=== PATIENT | female | born 1955 | race Caucasian/White ===

== ENCOUNTER 2018-07-06 13:29 | Emergency (ER) | payer OTHER ==
--- OUTSIDE RECORDS SUMMARY | 2018-07-06 13:34 | XMS REPORT | Continuity of Care Document ---
:1955 External Reference #:[id number] Author Name Covert, Marina Care Team Providers Name Role Phone Dennis Perez MD Primary Care Physician Unavailable Payers Type Date Identification Numbers Payment Provider Subscriber Policy Number: [id number] [facility] Health Ins Ppo/Epo Katelynn Garcia PayID: [id number] [address] [place] [address] Advance Directives Description No Information Available Problems Description No Information Family History Date Family Member(s) Problem(s) Comments : (age 87 Father due to cardiac Years) issues, not specific cause of Father Diabetes Type II Onset: (03/04/2018) Mother Hypertension (age 88 Years) Mother Diabetes Onset: (03/04/2018) Siblings 3 Siblings 3 1 - brother dec at age - 39 from PE 1 sister with diabetes 1 sister also with diabetes, no insulin. 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 ETOH Use Denies alcohol use Recreational Drug Use Denies Drug Use Tobacco Use Start: Unknown End: Patient is a former quit smoking 3 Unknown smoker weeks ago. May 2018 Smoking Status Reviewed: 06/25/18 Patient is a former quit smoking 3 smoker weeks ago. May 2018 Exercise Type/Frequency Exercises regularly gym 2-3 days per week, [employer], 30 minute circuit. Allergies, Adverse Reactions, Alerts Date Description Reaction Status Severity Comments 03/04/2018 Lisinopril Active cough 03/04/2018 Seasonal And Enviromental Active Medications Medication Date Status Form Strength Qnty SIG Indications Ordering Provider Dexamethasone 11/21/ Active Tablets 1mg 1tabs give at E27.8 Apollo 2017 bedtime on MD Sera the evening prior to in the morning lab draw Citalopram / Active Tablets 20mg 1 by mouth Unknown Hydrobromide 0000 every day Lantus / Active Solution 100Unit/ML 50 units Unknown 0000 in the morning and 50 units in the evening Lovastatin / Active Tablets 20mg take 1 Unknown 0000 tablet at bedtime Metformin HCL / Active Tablets 500mg 2 tabs by Unknown 0000 mouth twice a day Triamterene/Hyd / Active Tablets 75-50mg 1 by mouth Unknown rochlorothiazid 0000 every day e Levetiracetam 05/21/ Hx Tablets 500mg 60tabs 1 po bid Kal Singh 2010 - Lynne, M.DVidya 2017 Cephalexin 03/29/ Hx Tablets 500mg 40tabs one po qid Kal Singh 2010 - x 10 days Lynne, M.DVidya 2017 Dexamethasone 03/01/ Hx Tablets 4mg 30tabs 1 po tid Kal Singh 2010 - starting Lynne, on M.DVidya 2017March 04, 2011 Prilosec 03/01/ Hx Capsules 20mg 30caps 1 po qam Kal Singh 2010 - DR Batista, M.DVidya 2017 Immunizations Description No Information Available Vital Signs Date Vital Result Comment 06/25/2018 7:34am Height 64 inches 5'4" Weight 245.00 lb w/ shoes Heart Rate 83 /min BP Systolic Sitting 143 mmHg BP Diastolic Sitting 84 mmHg BMI (Body Mass Index) 42.0 kg/m2 03/04/2018 9:44am Height 64 inches 5'4" Weight 239.50 lb with shoes Heart Rate 92 /min BP Systolic Sitting 130 mmHg Lue Large cuff BP Diastolic Sitting 82 mmHg Lue Large cuff BMI (Body Mass Index) 41.1 kg/m2 Results Test Date Facility Test Result H/L Range Note Laboratory test finding 06/25/2018 [facility] Glucose Random 148 Hemoglobin A1c 7.0 5-7 Order 03/04/2018 [facility] EKG <pending> CBC No Diff 04/17/2011 [facility] White Blood Count 5.7 CUMM 4.8-10.[address] [place] [address] [phone] Red Cell Count 4.09 CUMM Low 4.2-5.4 Hemoglobin 12.5 g/dL 12.0-16.0 Hematocrit 36 % 35-47 Mean Corpuscular Volume 88 um3 79-97 Mean Corpuscular Hemoglob 31 pg 27-31 Mean Corpuscular HGB Cone 35 g/dL 32-36 Redcell Distribution WDTH 13 % 10.5-15 Platelet Count 202 CUMM 150-450 Mean Platelet Volume 8.9 um3 7.4-10.4 Laboratory test 04/17/2011 [facility] Hemoglobin A1c 7.7 % High Less Than [address] [place] [address] [phone] Liver Function 04/17/2011 [facility] Total Protein 6.1 Low 6.2 -8.1 Panel 101 GM/[place] [address] [phone] Albumin 3.7 GM/DL 3.6-5.4 Globulin 2.4 GM/DL 2-4 Albumin/Globulin Ratio 1.5 1-3 Bilirubin Total 0.5 mg/dL 0.4-1.5 2 Bilirubin Direct 0.0 mg/dL Low 0.1-0.5 Indirect Bilirubin (SEE NOTE) mg/dL 0.3-1.0 3 Alkaline Phosphatase 65 U/L 30-110 Alt (SGPT) 24 U/L 14-54 Ast (Sgot) 23 U/L 12-42 Lipid Profile 04/17/2011 [facility] Triglyceride 389 mg/dL High 40-200 (Trig/Chol/HDL) [address] [place] [address] [phone] Cholesterol 204 mg/dL High Less Than 200 4 High Density Lipoprotein 43 mg/dL 40-60 5 Cholesterol/HDL Ratio 4.74 AVERAGE High 1-4.44 Low Density Lipoprotein 83 mg/dL Less Than 100 6 Basic Metabolic Panel 04/17/2011 [facility] Sodium 142 mmol/L 135-[address] [place] [address] [phone] Potassium 4.7 mmol/L 3.5-5.0 Chloride 109 mmol/L 101-111 Co2 (Carbon Dioxide) 28.0 mmol/L 22-32 Anion Gap 5.0 mmol/L 2-11 7 Glucose 153 mg/dL High 70-100 BUN 12 mg/dL 6-24 Creatinine 0.8 mg/dL 0.50-1.40 One Over Creatinine 1.25 BUN/Creatinine Ratio 15.0 8-20 Calcium 9.3 mg/dL 8.1-9.9 eGFR Non- 75.0 > 60 eGFR 96.5 > 60 8 Type And Screen 03/01/2011 [facility] Patient Blood O POSITIVE 9 (Pre-Adm) [address] [place] [address] [phone] Antibody Screen NEGATIVE Specimen Discard Date 03/15/11 10 Basic Metabolic Panel 03/01/2011 [facility] Sodium 136 mmol/L 135-145 [address] [place] [address] [phone] Potassium 4.1 mmol/L 3.5-5.0 Chloride 101 mmol/L 101-111 Co2 (Carbon Dioxide) 28.0 mmol/L 22-32 Anion Gap 7.0 mmol/L 2-11 11 Glucose 146 mg/dL High 70-100 BUN 14 mg/dL 6-24 Creatinine 0.70 mg/dL 0.50-1.40 One Over Creatinine 1.40 BUN/Creatinine Ratio 20.0 8-20 Calcium 9.7 mg/dL 8.1-9.9 eGFR Non- 87.5 > 60 eGFR 112.6 > 60 12 CBC No Diff 03/01/2011 [facility] White Blood Count 9.0 CUMM 4.8-10.8 [address] [place] [address] [phone] Red Cell Count 4.58 CUMM 4.2-5.4 Hemoglobin 14.5 g/dL 12.0-16.0 Hematocrit 41 % 35-47 Mean Corpuscular Volume 89 um3 79-97 Mean Corpuscular Hemoglob 32 pg High 27-31 Mean Corpuscular HGB Cone 36 g/dL 32-36 Redcell Distribution WDTH 14 % 10.5-15 Platelet Count 201 CUMM 150-450 Mean Platelet Volume 8.9 um3 7.4-10.4 1 THERAPEUTIC TARGET FOR THE TREATMENT OF DIABETES MELLITUS PATIENTS IS <7% HBA1C, AND IN SELECTIVE PATIENTS <6.0%. PLEASE REFER TO [place] [employer] DIABETIC CARE GUIDELINES FOR FURTHER INFORMATION. 2 A metabolite of Naproxen, O-desmethylnaproxen, has been shown to interfere with the Jendrassik-Tez method for measuring total bilirubin. Samples from patients who have taken Naproxen have shown spurious elevation in total bilirubin levels. 3 UNABLE TO CALCULATE IND.BILI D.BILI IS <0.1 Please note updated reference range, effective 02/23/10 4 CHOLESTEROL INTERPRETATION: Desirable: Less than 200 MG/DL Borderline-High Risk: 200-239 MG/DL High-Risk: 240 MG/DL and over 5 HDL INTERPRETATION: Undesirable: High Risk: Less than 40 MG/DL Desirable: Low Risk: Greater than 60 MG/DL 6 LDL INTERPRETATION: Low Risk Optimal Level: LDL Less than 100 MG/DL Near or Above Optimal: LDL 100-129 MG/DL Borderline High Risk: LDL 130-159 MG/DL High Risk: LDL 160-189 MG/DL Very High Risk: LDL Greater than 189 MG/DL 7 Anion gap measurement may be of limited value in the presence of any alkalosis, especially in a combined acid base disorder. . 8 Because ethnic data is not always readily available, this report includes an eGFR for both -Americans and non- Americans. The National Kidney Disease Education Program (NKDEP) does not endorse the use of the MDRD equation for patients that are not between the ages of 18 and 70, are , have extremes of body size, muscle mass, or nutritional status, or are non- or non-. According to the National Kidney Foundation, irrespective of diagnosis, the stage of the disease is based on the level of kidney function: Stage Description GFR(mL/min/1.73 m(2)) 1 Kidney damage with normal or decreased GFR 90 2 Kidney damage with mild decrease in GFR 60-89 3 Moderate decrease in GFR 30-59 4 Severe decrease in GFR 15-29 5 Kidney failure <15 (or dialysis) 9 AA 03/06 10 PREADMISSION TESTING SAMPLES FOR BLOOD BANK WILL BE HELD FOR 14 DAYS FROM THE DATE OF COLLECTION *IF* THE FOLLOWING CRITERIA ARE MET: 1) THE PATIENT HAS *NOT* BEEN IN THE LAST 3 MONTHS. 2) THE PATIENT HAS *NOT* BEEN TRANSFUSED IN THE LAST 3 MONTHS. PREADMISSION TESTING SAMPLES WILL *NOT* BE HELD FOR 14 DAYS FROM PATIENTS WHO IN THE LAST 3 MONTHS: 1) HAVE BEEN 2) HAVE BEEN TRANSFUSED THESE PATIENTS *MUST* BE COLLECTED WITHIN 3 DAYS OF THE SURGERY DATE. 11 Anion gap measurement may be of limited value in the presence of any alkalosis, especially in a combined acid base disorder. . 12 Because ethnic data is not always readily available, this report includes an eGFR for both -Americans and non- Americans. The National Kidney Disease Education Program (NKDEP) does not endorse the use of the MDRD equation for patients that are not between the ages of 18 and 70, are , have extremes of body size, muscle mass, or nutritional status, or are non- or non-. According to the National Kidney Foundation, irrespective of diagnosis, the stage of the disease is based on the level of kidney function: Stage Description GFR(mL/min/1.73 m(2)) 1 Kidney damage with normal or decreased GFR 90 2 Kidney damage with mild decrease in GFR 60-89 3 Moderate decrease in GFR 30-59 4 Severe decrease in GFR 15-29 5 Kidney failure <15 (or dialysis) Procedures Date Code Description Status 04/18/2018 18422 Treadmill Interp/Report Only Completed 04/18/2018 71980 Stress Test Supervsn W/Out I/R Completed 03/14/2018 06631 ECHO Transthoracic, Real-Time 2D With Doppler And Color Completed Flow 03/14/2018 00192 ECHO Transthoracic, Real-Time 2D With Doppler And Color Completed Flow 03/04/2018 26155 EKG Tracing & Interpretation Completed 03/06/2011 93198 Stereotactic CAD Proc Cranial,Intradural Add On Code Completed 03/06/2011 90776 Craniectomy, Trephination,Bone Flap For Exc Meningioma, Completed Supratent 10/27/2007 93936 EKG, Interpretation Only Completed Encounters Type Date Location Provider Dx Diagnosis Office Visit 06/25/2018 Anthony Flood and Apollo Zamoar MD E27.8 Other specified 8:00a [facility] disorders of adrenal gland E11.9 Type 2 diabetes mellitus without complications E87.6 Hypokalemia Z68.41 Body mass index (BMI) 40.0-44.9, adult Office Visit 03/04/2018 9:40a [facility]io Burleson E13.9 Other specified Cardiology Raya Baxter diabetes mellitus without complications J43.9 Emphysema, unspecified E78.00 Pure hypercholesterolemia, unspecified I10 Essential (primary) hypertension R94.31 Abnormal electrocardiogram [ECG] [EKG] R06.00 Dyspnea, unspecified Office Visit 06/23/2014 2:59p [facility] Holden 599.0 [facility]juancho Cramer M.D. T[facility] Infection Hospital[facility] Site Not Spec 038.9 Septicemia Unspec 250.00 Diabetes Mellitus W/O Compl Type II Or Unspec Controlled 790.29 Other Abnormal Glucose Office Visit 06/22/2014 2:58p [facility] Jovana 599.0 [facility],juancho Arauz M.D. Tract Infection Hospitalists Site Not Spec 038.9 Septicemia Unspec 250.00 Diabetes Mellitus W/O Compl Type II Or Unspec Controlled Office Visit 06/21/2014 2:58p [facility] Mya S. 599.0 [facility],juancho Wilcox N.P. Tract Infection Hospitalists Site Not Spec 038.9 Septicemia Unspec 790.29 Other Abnormal Glucose Office Visit 02/16/2011 3:00p Neurosurgery Kal Singh 225.2 [facility] Raya Batista Cerebral Meninges Plan of Treatment Future Appointment(s):07/23/2018 8:40 am - Apollo Zamora MD at [facility]06/25/2018 - Apollo Zamora MDE27.8 Other specified disorders of adrenal glandNew Medication:Dexamethasone 1 mg - give at bedtime on the evening prior to in the morning lab drawFollow up:4 weeksInstructions:1. Blood tests today. 2. Collect saliva samples on 3 consecutive nights. 3. Take dexamethasone 1mg tablet on the 3rd night prior to blood tests. 4. Return in 3- 4 weeks for a follow-up visit.E11.9 Type 2 diabetes mellitus without complicationsInstructions:1. Reduce Lantus to 40 units twice daily.E87.6 YqgigqtrziiZ33.41 Body mass index (BMI) 40.0-44.9, adult
[2018-07-06 13:57] VITALS: BP 139/87
--- NOTE | 2018-07-06 14:20 | UC ---
Complaint Female HPI - HPI Summary HPI Summary: 62 y/o female presents to the urgent care c/o frequency and burning on urination w/ hematuria since this morning. However she has similar symptoms about 1 months ago which resolved w/ drinking a lot of water. She was recently Dx w/ enlarged adrenal gland and a Meningoma about 2 months ago and has been managed by DR Jerome. Pt states mild lower back pain, 4/10 specially w/ urination. Pt denies fever, flank pain, pelvic pain, vaginal pain, abdominal pain, N/V/D. She has not taking any medications to alleviate symptoms. - History Of Current Complaint Chief Complaint: UCGU Stated Complaint: BLOOD IN URINE Time Seen by Provider: 07/06/18 14:18 Hx Obtained From: Patient Onset/Duration: Gradual Onset, Lasting Hours - 10 hrs, Still Present Timing: Intermittent, Lasting Seconds Severity Initially: Mild Severity Currently: Mild Pain Intensity: 4 Pain Scale Used: 0-10 Numeric Character: Burning Aggravating Factor(s): Urination Alleviating Factor(s): Nothing Associated Signs And Symptoms: Positive: Back Pain - lower back pain. Negative : Fever, Vaginal Bleeding/Discharge, Vaginal Discharge, Nausea, Vomiting(# Of Episodes =), Genital Swelling, Genital Blisters - Risk Factors Ectopic Risk Factor: Negative Ovarian Torsion Risk Factor: Negative - Allergies/Home Medications Allergies/Adverse Reactions: Allergies Allergy/AdvReac Type Severity Reaction Status Date / Time lisinopril Allergy Coughing Verified 07/06/18 13:57 PMH/Surg Hx/FS Hx/Imm Hx Previously Healthy: Yes Endocrine History: Diabetes Cardiovascular History: Hypertension Other Neurological History: Meningioma Psychological History: Anxiety - Surgical History Surgical History: Yes Surgery Procedure, Year, and Place: benign brain tumor removal,nose surgery, mass removed sinus cavity 1983,lt knee surgery 1984,rt foot bunionectomy,c- section,hysterectomy,tonsilectomy,ganglion removed from rt ring finger - Family History Known Family History: Positive: Cardiac Disease, Hypertension, Diabetes Family History: stroke - Social History Alcohol Use: None Substance Use Type: None Smoking Status (MU): Light Every Day Tobacco Smoker Type: Cigarettes Length of Time of Smoking/Using Tobacco: 30 years Have You Smoked in the Last Year: Yes When Did the Patient Quit Smoking/Using Tobacco: 3 days ago Household Exposure Type: Cigarettes - Immunization History Most Recent Influenza Vaccination: never Most Recent Tetanus Shot: within 10 years Most Recent Pneumonia Vaccination: 2008 Review of Systems All Other Systems Reviewed And Are Negative: Yes Constitutional: Positive: Negative Skin: Positive: Negative Eyes: Positive: Negative ENT: Positive: Negative Respiratory: Positive: Negative Cardiovascular: Positive: Negative Gastrointestinal: Positive: Negative Genitourinary: Positive: Dysuria, Hematuria, Frequency, Urgency, Other - lower back pain Motor: Positive: Negative Neurovascular: Positive: Negative Musculoskeletal: Positive: Negative Neurological: Positive: Negative Psychological: Positive: Negative Is Patient Immunocompromised?: No Physical Exam - Summary Physical Exam Summary: VITAL SIGNS: Reviewed. GENERAL: Patient is a well developed and nourished obese female who is sitting comfortable in the examining table. Patient is not in any acute respiratory distress. HEAD AND FACE: No signs of trauma. No ecchymosis, hematomas or skull depressions. No sinus tenderness. EYES: PERRLA, EOMI x 2, No injected conjunctiva, clear watery eyes, no nystagmus. No photophobia. EARS: Hearing grossly intact. Ear canals and tympanic membranes are within normal limits. MOUTH: pharynx with no erythema, no exudates,no palatal petechiae. no B/L tonsillar enlargement Uvula in midline. NECK: Supple, trachea is midline, no lymphadenopathy, no JVD, no carotid bruit, no c-spine tenderness, neck with full ROM. CHEST: Symmetric, no tenderness at palpation LUNGS: Clear to auscultation bilaterally. No wheezing or crackles. CVS: Regular rate and rhythm, S1 and S2 present, no murmurs or gallops appreciated. ABDOMEN: Soft, non-tender. No signs of distention. No rebound no guarding, and no masses palpated. Bowel sounds are normal. BACK:no scoliosis or lesions, non tender to palpation, No B/L CVA tenderness EXTREMITIES: FROM in all major joints, no edema, no cyanosis or clubbing. NEURO: Alert and oriented x 3. No acute neurological deficits. Speech is normal and follows commands. SKIN: Dry and warm Triage Information Reviewed: Yes Vital Signs: Initial Vital Signs Temp 97.8 F 07/06/18 13:52 Pulse 109 07/06/18 13:52 Resp 18 07/06/18 13:52 BP 139/87 07/06/18 13:52 Pulse Ox 99 12/02/18 13:52 Complaint Female Dx - Course Course Of Treatment: 62 y/o female presents to the urgent care c/o frequency and burning on urination w/ hematuria since this morning. However she has similar symptoms about 1 months ago which resolved w/ drinking a lot of water. She was recently Dx w/ enlarged adrenal gland and a Meningoma about 2 months ago and has been managed by DR Jerome. Pt states mild lower back pain, 4/10 specially w/ urination. Pt denies fever, flank pain, pelvic pain, vaginal pain, abdominal pain, N/V/D. She has not taking any medications to alleviate symptoms. Hx obtained. PE:WNL. UA results: Blood 3+, Leukoesterase 1+. Pt Rx Bactrim PO x 7 days. Pyridium 100mg PO TID x 2 days. Advised to increase fluid intake. Urine sent for culture if any abnormality Pt will be notified for further treatment. Pt advised If she develops fever or flank pain to immediately go to the ER for further management, otherwise f/u w/ DR Jerome for further management is not improvment. D/C instrcutions explained. Pt understood and agreed. Left the clinic ambulating. - Differential Dx/Diagnosis Differential Diagnosis/HQI/PQRI: Appendicitis, Ovarian Cyst, Renal Colic, Ureteral Stone, Urinary Tract Infection, Other - pyelonephritis Provider Diagnosis: UTI (urinary tract infection), Dysuria Discharge - Sign-Out/Discharge Documenting (check all that apply): Patient Departure - D/C home All imaging exams completed and their final reports reviewed: No Studies - Discharge Plan Condition: Stable Disposition: HOME Prescriptions: Phenazopyridine TAB* [Pyridium 100 mg TAB*] 100 mg PO TID #6 tab Sulfamethox/Trimethoprim DS* [Bactrim DS 800/160 TAB*] 1 tab PO BID #14 tab Patient Education Materials: Urinary Tract Infection in Women (ED) Referrals: Dennis Perez MD [Primary Care Provider] - 3 Days Additional Instructions: 1- Please take Bactrim PO x 7 days. Pyridium 100 mg PO TID x 2 days to alleviate urinary symptoms. Increase increase fluid intake. drink cranberry juice. 2-Urine sent for culture if any abnormality, you will be notified for further treatment. 3-If symptoms do not improve please f/u with your PCP in 3 days for further management. 4-If you develop fever or flank pain please go immediately to the ER for further management - Billing Disposition and Condition Condition: STABLE Disposition: Home
== END 2018-07-06 14:46 | disposition home or self-care (01) ==
LOC: UCEAST 13:29
DX: N39.0 Urinary tract infection, site not specified (principal); R31.9 Hematuria, unspecified; R30.0 Dysuria; I10 Essential (primary) hypertension; E11.9 Type 2 diabetes mellitus without complications; F17.210 Nicotine dependence, cigarettes, uncomplicated
CPT/HCPCS: 81003; 87086; 99212; G0463

== ENCOUNTER 2018-09-04 09:21 | Emergency (ER) | payer OTHER ==
[2018-09-04 09:33] VITALS: BP 138/70
--- NOTE | 2018-09-04 09:43 | UC ---
Hand/Wrist HPI - HPI Summary HPI Summary: Patient is a 63-year-old right-handed female that presents here status post a jamming injury to her right middle finger. Occurred last night. It is swollen and bruised. Pain is in the PIP joint - History Of Current Complaint Chief Complaint: UCUpperExtremity Stated Complaint: FINGER INJURY Time Seen by Provider: 09/04/18 09:37 Hx Obtained From: Patient Onset/Duration: Sudden Onset, Lasting Hours Severity Initially: Moderate Severity Currently: Mild Pain Intensity: 3 Pain Scale Used: 0-10 Numeric Character Of Pain: Aching, Throbbing Aggravating Factor(s): Movement Alleviating Factor(s): Rest Associated Signs And Symptoms: Positive: Swelling, Bruising Related History: Dominant Hand Right Hands: 1 - swoolen/ecchymotic - Allergies/Home Medications Allergies/Adverse Reactions: Allergies Allergy/AdvReac Type Severity Reaction Status Date / Time lisinopril Allergy Coughing Verified 09/04/18 09:33 PMH/Surg Hx/FS Hx/Imm Hx Previously Healthy: Yes Endocrine History: Diabetes Cardiovascular History: Hypertension - Surgical History Surgical History: Yes Surgery Procedure, Year, and Place: benign brain tumor removal,nose surgery, mass removed sinus cavity 1983,lt knee surgery 1984,rt foot bunionectomy,c- section,hysterectomy,tonsilectomy,ganglion removed from rt ring finger - Family History Known Family History: Positive: Cardiac Disease, Hypertension, Diabetes Family History: stroke - Social History Alcohol Use: None Substance Use Type: None Smoking Status (MU): Light Every Day Tobacco Smoker Type: Cigarettes Length of Time of Smoking/Using Tobacco: 30 years Have You Smoked in the Last Year: Yes When Did the Patient Quit Smoking/Using Tobacco: 3 days ago Household Exposure Type: Cigarettes - Immunization History Most Recent Influenza Vaccination: never Most Recent Tetanus Shot: within 10 years Most Recent Pneumonia Vaccination: 2008 Review of Systems All Other Systems Reviewed And Are Negative: Yes Constitutional: Positive: Negative Skin: Positive: Bruising Eyes: Positive: Negative ENT: Positive: Negative Respiratory: Positive: Negative Cardiovascular: Positive: Negative Gastrointestinal: Positive: Negative Genitourinary: Positive: Negative Motor: Positive: Negative Neurovascular: Positive: Negative Musculoskeletal: Positive: Arthralgia - RMF PIP Neurological: Positive: Negative Psychological: Positive: Negative Physical Exam Triage Information Reviewed: Yes Appearance: Well-Appearing, No Pain Distress, Well-Nourished Vital Signs: Initial Vital Signs Temp 97 F 09/04/18 09:28 Pulse 88 09/04/18 09:28 Resp 20 09/04/18 09:28 BP 138/70 09/04/18 09:28 Pulse Ox 96 09/04/18 09:28 Eyes: Positive: Conjunctiva Clear ENT: Positive: Hearing grossly normal. Negative: Nasal congestion, Nasal drainage, Tonsillar swelling, Tonsillar exudate, Muffled voice, Sinus tenderness Dental Exam: Normal Neck: Positive: Supple, Nontender, No Lymphadenopathy Respiratory: Positive: Lungs clear, Normal breath sounds, No respiratory distress Cardiovascular: Positive: RRR, No Murmur Musculoskeletal: Positive: ROM Intact, No Edema Neurological: Positive: Alert Psychological Exam: Normal Skin Exam: Normal Diagnostics - Radiology No standard instances Radiology Interpretation Completed By: Radiologist Summary of Radiographic Findings: DJD, STS, no fx Hand/Wrist Course/Dx - Differential Dx/Diagnosis Provider Diagnosis: Sprain of right middle finger Discharge - Sign-Out/Discharge Documenting (check all that apply): Patient Departure All imaging exams completed and their final reports reviewed: Yes - Discharge Plan Condition: Stable Disposition: HOME Patient Education Materials: Finger Sprain (ED) Referrals: Dennis Perez MD [Primary Care Provider] - 2 Weeks (if not better) Additional Instructions: maribell tape for comfort tylenol if needed for pain elevate ice - Billing Disposition and Condition Condition: STABLE Disposition: Home
== END 2018-09-04 10:22 | disposition home or self-care (01) ==
LOC: UCEAST 09:21
DX: S63.612A Unspecified sprain of right middle finger, initial encounter (principal); E11.9 Type 2 diabetes mellitus without complications; I10 Essential (primary) hypertension; F17.210 Nicotine dependence, cigarettes, uncomplicated; Z88.8 Allergy status to other drugs, medicaments and biological substances; X58.XXXA Exposure to other specified factors, initial encounter; Y92.9 Unspecified place or not applicable
CPT/HCPCS: 73140; 99212; G0463

== ENCOUNTER 2019-02-07 15:58 | Emergency (ER) | payer OTHER ==
--- OUTSIDE RECORDS SUMMARY | 2019-02-07 16:03 | XMS REPORT | Continuity of Care Document ---
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 ETOH Use Denies alcohol use Recreational Drug Use Denies Drug Use Tobacco Use Start: Unknown Light tobacco smoker (10 or fewer cigarettes/day) Smoking Status Reviewed: 01/21/19 Light tobacco smoker (10 or fewer cigarettes/day) Exercise Type/Frequency Exercises regularly gym 2-3 days per week, [employer], 30 minute circuit. Allergies, Adverse Reactions, Alerts Active Allergies Reaction Severity Comments Date Lisinopril cough 03/04/2018 Seasonal And Enviromental 03/04/2018 Medications Active Medications SIG Qnty Indications Ordering Date Provider Ozempic inject 0.25mg 1.500ml E11.65 Apollo Zamora, 01/21/2019 0.25or 0.5 mg/Dose weekly for 2 MD Solution Pen-Inject weeks, then increase to 0.5mg weekly Ozempic 1mg injection 3ml E11.65 Apollo Zamora, 01/21/2019 1mg/Dose Solution once weekly, Pen-Inject hold on file for second month Steglatro 1 by mouth 30tabs E11.9 Apollo Zamora, 10/21/2018 5mg Tablets every day MD Vladimir Rouse 80 units once 9ml E11.9 Apollo Zamora, 10/21/2018 300Unit/ML daily at Solution Pen-Inject bedtime Metformin HCL ER 1 tablet am and 180tabs Apollo Zamora, 10/21/2018 750mg Tablets ER 1 tablet pm 24HR Spironolactone take 50mg once 60tabs Apollo Zamora, 07/16/2018 50mg Tablets daily Hydrochlorothiazide take 25mg once 30tabs Apollo Zamora, 07/16/2018 25mg Tablets daily Citalopram Hydrobromide 1 by mouth Unknown 20mg every day Tablets Lovastatin take 1 tablet Unknown 20mg Tablets at bedtime History Medications Dexamethasone give at bedtime 1tabs E11.9 Apollo Zamora MD 07/23/2018 - 1mg Tablets on the evening 10/19/2018 prior to in the morning lab draw Dexamethasone give at bedtime 1tabs E27.8 Apollo Zamora MD 06/25/2018 - 1mg Tablets on the evening 07/16/2018 prior to in the morning lab draw Levetiracetam 1 po bid 60tabs Kal Singh 05/21/2011 - 500mg Raya Batista 02/13/2018 Tablets Cephalexin one po qid x 10 40tabs Kal Singh 03/29/2011 - 500mg Tablets days Raya Batista 02/13/2018 Dexamethasone 1 po tid starting 30tabs Kal Singh 03/01/2011 - 4mg Tablets on Saturday, February Raya Batista 02/13/20182010 Prilosec 1 po qam 30caps Kal Singh 03/01/2011 - 20mg Capsules DR Lynne M.D. 02/13/2018 Lantus 50 units in the E11.9 Unknown - 100Unit/ML morning and 50 10/21/2018 Solution units in the evening Metformin HCL 2 tabs by mouth Unknown - 500mg twice a day 10/21/2018 Tablets Triamterene/Hydrochlor 1 by mouth every Unknown - othiazide day 07/16/2018 75-50mg Tablets Vital Signs Date Vital Result Comment 01/21/2019 8:43am Height 64 inches 5'4" Weight 240.00 lb w/ shoes Heart Rate 104 /min BP Systolic Sitting 137 mmHg BP Diastolic Sitting 95 mmHg BMI (Body Mass Index) 41.2 kg/m2 10/21/2018 8:52am Height 64 inches 5'4" Weight 248.00 lb w/o shoes Heart Rate 110 /min BP Systolic Sitting 131 mmHg BP Diastolic Sitting 84 mmHg BMI (Body Mass Index) 42.6 kg/m2 07/24/2018 9:00am Height 64 inches 5'4" Weight 245.00 lb Heart Rate 72 /min BP Systolic 150 mmHg BP Diastolic 90 mmHg Respiratory Rate 18 /min Body Temperature 97.9 F BMI (Body Mass Index) 42.0 kg/m2 07/23/2018 8:21am Height 64 inches 5'4" Weight 245.00 lb w/o shoes Heart Rate 98 /min BP Systolic Sitting 138 mmHg BP Diastolic Sitting 87 mmHg BMI (Body Mass Index) 42.0 kg/m2 06/25/2018 7:34am Height 64 inches 5'4" Weight [...] Result H/L Range Note Laboratory test finding 10/21/2018 [facility] Glucose Random 222 Hemoglobin A1c 8.2 High 5-7 Cortisol Free 09/01/2018 [facility] Urine Free 41 mcg/24h 3.5 -45 24HR Urine [address] [place] [address] [phone] Urine Collection Duration 24 h Urine Total Volume 2300 mL 1 Creatinine 24HR 09/01/2018 [facility] Urine Collection [address] [place] [address] [phone] Urine Total Volume 2300 mL Urine Creatinine Concentration 82.73 mg/dL Urine Creatinine/24 Hour 1902.79 mg/24Hr High 600-1800 Laboratory test 09/01/2018 [facility] Cortisol 14.36 g/dL 2 finding [address] [place] [address] [phone] Basic Metabolic 08/01/2018 [facility] Sodium 139 mmol/L N 135- [address] [place] [address] [phone] Potassium 4.2 mmol/L N 3.5-5.0 Chloride 104 mmol/L N 101-111 Co2 Carbon Dioxide 28 mmol/L N 22-32 Anion Gap 7 mmol/L N 2-11 Glucose 128 mg/dL High 70-100 Blood Urea Nitrogen 22 mg/dL N 6-24 Creatinine 0.74 mg/dL N 0.51-0.95 BUN/Creatinine Ratio 29.7 High 8-20 Calcium 9.3 mg/dL N 8.6-10.3 Egfr Non- 80.1 >60 Egfr 96.9 >60 3 Basic Metabolic Panel 07/24/2018 [facility] Sodium 137 mmol/L N 135-145 [address] [place] [address] [phone] Potassium 4.5 mmol/L N 3.5-5.0 Chloride 103 mmol/L N 101-111 Co2 Carbon Dioxide 25 mmol/L N 22-32 Anion Gap 9 mmol/L N 2-11 Glucose 230 mg/dL High 70-100 Blood Urea Nitrogen 22 mg/dL N 6-24 Creatinine 0.77 mg/dL N 0.51-0.95 BUN/Creatinine Ratio 28.6 High 8-20 Calcium 9.4 mg/dL N 8.6-10.3 Egfr Non- 76.5 >60 Egfr 92.5 >60 4 Laboratory test finding 07/24/2018 [facility] Acth <5.0 pg/mL Abnormal 5 [address] [place] [address] [phone] Cortisol 2.37 g/dL 6 Laboratory test 07/23/2018 [facility] Glucose Random 152 finding Laboratory test 07/01/2018 [facility] Cortisol, Saliva <50 ng/ dL <100 7 finding [address] [place] [address] [phone] Cortisol 2.31 g/dL 8 Laboratory test finding 06/25/2018 [facility] Cortisol 8.22 g/ dL 9 [address] [place] [address] [phone] Progesterone 17Hydroxy <40 ng/dL 10 Dhea Sulfate 90 g/dL 16-195 11 Testosterone Total 21.72 ng/dL N 8-60 Aldosterone 24 ng/dL Abnormal <=21 12 Renin 1.4 ng/mL/h 13 Basic Metabolic Panel 06/25/2018 [facility] Sodium 139 mmol/L N 135-145 [address] [place] [address] [phone] Potassium 4.2 mmol/L N 3.5-5.0 Chloride 104 mmol/L N 101-111 Co2 Carbon Dioxide 27 mmol/L N 22-32 Anion Gap 8 mmol/L N 2-11 Glucose 115 mg/dL High 70-100 Blood Urea Nitrogen 19 mg/dL N 6-24 Creatinine 0.70 mg/dL N 0.51-0.95 BUN/Creatinine Ratio 27.1 High 8-20 Calcium 9.6 mg/dL N 8.6-10.3 Egfr Non- 85.4 >60 Egfr 103.3 >60 14 Laboratory test 06/25/2018 [facility] Acth 7.5 pg/mL 15 finding [address] [place] [address] [phone] Metanephrines 06/25/2018 [facility] Plasma Free 0.44 <0.9 Plasma [address] [facility] Normetanephrine nmol/L 0 [place] [address] [phone] Plasma Free Metanephrine <0.20 nmol/L <0.50 16 Laboratory test 06/25/2018 [facility] Sex Hormone 35 nmol/L 17 finding [address] [facility] [place] [address] [phone] Estradiol <40 pg/mL 18 Prolactin 5.2 ng/mL N 1.0-25.0 TSH (Thyroid Stim Horm) 3.32 mcIU/mL N 0.34-5.60 Estradiol, Confirmatory, S <10 pg/mL 19 Laboratory test finding 06/25/2018 [facility] Glucose Random 148 Hemoglobin A1c 7.0 5-7 Order 03/04/2018 [facility] EKG <pending> Laboratory test 04/17/2011 [facility] Hemoglobin A1c 7.7 % High Less Than [address] 6[address]0 [place] [address] [phone] Liver Function 04/17/2011 [facility] Total Protein 6.1 GM/DL Low 6.2-8.1 Panel [address] [place] [address] [phone] Albumin 3.7 GM/DL 3.6-5.4 Globulin 2.4 GM/DL 2-4 Albumin/Globulin Ratio 1.5 1-3 Bilirubin Total 0.5 mg/dL 0.4-1.5 21 Bilirubin Direct 0.0 mg/dL Low 0.1-0.5 Indirect Bilirubin (SEE NOTE) mg/dL 0.3-1.0 22 Alkaline Phosphatase 65 U/L 30-110 Alt (SGPT) 24 U/L 14-54 Ast (Sgot) 23 U/L 12-42 Lipid Profile 04/17/2011 [facility] Triglyceride 389 mg/dL High 40-200 (Trig/Chol/HDL) [address] [place] [address] [phone] Cholesterol 204 mg/dL High Less Than 200 23 High Density Lipoprotein 43 mg/dL 40-60 24 Cholesterol/HDL Ratio 4.74 AVERAGE High 1-4.44 Low Density Lipoprotein 83 mg/dL Less Than 100 25 Basic Metabolic Panel 04/17/2011 [facility] Sodium 142 mmol/L 135-145 [address] [place] [address] [phone] Potassium 4.7 mmol/L 3.5-5.0 Chloride 109 mmol/L 101-111 Co2 (Carbon Dioxide) 28.0 mmol/L 22-32 Anion Gap 5.0 mmol/L 2-11 26 Glucose 153 mg/dL High 70-100 BUN 12 mg/dL 6-24 Creatinine 0.8 mg/dL 0.50-1.40 One Over Creatinine 1.25 BUN/Creatinine Ratio 15.0 8-20 Calcium 9.3 mg/dL 8.1-9.9 eGFR Non- 75.0 > 60 eGFR 96.5 > 60 27 CBC No Diff 04/17/2011 [facility] White Blood Count 5.7 CUMM 4.8-10.8 [address] [place] [address] [phone] Red Cell Count 4.09 CUMM Low 4.2-5.4 Hemoglobin 12.5 g/dL 12.0-16.0 Hematocrit 36 % 35-47 Mean Corpuscular Volume 88 um3 79-97 Mean Corpuscular Hemoglob 31 pg 27-31 Mean Corpuscular HGB Cone 35 g/dL 32-36 Redcell Distribution WDTH 13 % 10.5-15 Platelet Count 202 CUMM 150-450 Mean Platelet Volume 8.9 um3 7.4-10.4 Type And Screen 03/01/2011 [facility] Patient Blood O POSITIVE 28 (Pre-Adm) [address] [facility] [place] [address] [phone] Antibody Screen NEGATIVE Specimen Discard Date 03/15/11 29 Basic Metabolic Panel 03/01/2011 [facility] Sodium 136 mmol/L 135-145 [address] [place] [address] [phone] Potassium 4.1 mmol/L 3.5-5.0 Chloride 101 mmol/L 101-111 Co2 (Carbon Dioxide) 28.0 mmol/L 22-32 Anion Gap 7.0 mmol/L 2-11 30 Glucose 146 mg/dL High 70-100 BUN 14 mg/dL 6-24 Creatinine 0.70 mg/dL 0.50-1.40 One Over Creatinine 1.40 BUN/Creatinine Ratio 20.0 8-20 Calcium 9.7 mg/dL 8.1-9.9 eGFR Non- 87.5 > 60 eGFR 112.6 > 60 31 CBC No Diff 03/01/2011 [facility] White Blood Count 9.0 CUMM 4.8-10.8 [address] [place] [address] [phone] Red Cell Count 4.58 CUMM 4.2-5.4 Hemoglobin 14.5 g/dL 12.0-16.0 Hematocrit 41 % 35-47 Mean Corpuscular Volume 89 um3 79-97 Mean Corpuscular Hemoglob 32 pg High 27-31 Mean Corpuscular HGB Cone 36 g/dL 32-36 Redcell Distribution WDTH 14 % 10.5-15 Platelet Count 201 CUMM 150-450 Mean Platelet Volume 8.9 um3 7.4-10.4 1 ADDITIONAL INFORMATION This test was developed and its performance characteristics determined by [facility] in a manner consistent with CLIA requirements. This test has not been cleared or approved by the U.S. Food and Drug Administration. Test Performed by: [facility] [address] [place] [address] 2 AM 8.7-22.4 PM <10 3 Because ethnic data is not always readily [...] 15-29 5 Kidney failure <15 (or dialysis) 4 Because ethnic data is not always readily [...] 15-29 5 Kidney failure <15 (or dialysis) 5 REFERENCE VALUE 7.2-63 (a.m. collection) Test Performed by: [facility] - [address] [address] 6 AM 8.7-22.4 PM <10 7 ADDITIONAL INFORMATION This test was developed and its performance characteristics determined by [facility] in a manner consistent with CLIA requirements. This test has not been cleared or approved by the U.S. Food and Drug Administration. Test Performed by: [facility] - [address] [address] 8 AM 8.7-22.4 PM <10 9 AM 8.7-22.4 PM <10 10 REFERENCE VALUE < 80 (Follicular) <285 (Luteal) < 51 (Postmenopausal) ADDITIONAL INFORMATION This test was developed and its performance characteristics determined by [facility] in a manner consistent with CLIA requirements. This test has not been cleared or approved by the U.S. Food and Drug Administration. Test Performed by: [facility] - [address] [address] 11 Test Performed by: [facility] - [address] [address] 12 ADDITIONAL INFORMATION Reference range for patients 11 years and older is based on upright A.M. collection from subjects without sodium restrictions. This test was developed and its performance characteristics determined by [facility] in a manner consistent with CLIA requirements. This test has not been cleared or approved by the U.S. Food and Drug Administration. Test Performed by: [facility] - [address] [address] 13 REFERENCE VALUE (Peripheral vein specimen) Na-deplete, upright: Mean: 5.9 Range: 2.9-10.8 Na-replete, upright: Mean: 1.0 Range: < or=0.6-3.0 ADDITIONAL INFORMATION Testing performed by Liquid Chromatography-Tandem Mass Spectrometry (LC-MS/MS). This test was developed and its performance characteristics determined by [facility] in a manner consistent with CLIA requirements. This test has not been cleared or approved by the U.S. Food and Drug Administration. Test Performed by: [facility] - [address] [address] 14 Because ethnic data is not always readily [...] 15-29 5 Kidney failure <15 (or dialysis) 15 REFERENCE VALUE 7.2-63 (a.m. collection) Test Performed by: [facility] - [address] [address] 16 ADDITIONAL INFORMATION This test was developed and its performance characteristics determined by [facility] in a manner consistent with CLIA requirements. This test has not been cleared or approved by the U.S. Food and Drug Administration. Test Performed by: [facility] [place] [address] 17 REFERENCE VALUE 18-144 (non-) Test Performed by: [facility] [place] [address] 18 Estradiols <40 pg/mL are sent to a reference lab for low range testing. Postmenopausal Females < 20 Ovulating females: by day in cycle relative to LH Peak Follicular phase - 12 10-50 - 4 60-200 Mid-cycle - 1 120-375 Luteal phase + 2 50-155 + 6 60-260 + 12 15-115 19 REFERENCE VALUE Premenopausal: 15-350 (E2 levels vary widely through the menstrual cycle.) Postmenopausal: <10 ADDITIONAL INFORMATION This test was developed and its performance characteristics determined by [facility] in a manner consistent with CLIA requirements. This test has not been cleared or approved by the U.S. Food and Drug Administration. Test Performed by: [facility] [place] [address] 20 THERAPEUTIC TARGET FOR THE TREATMENT OF DIABETES MELLITUS PATIENTS IS <7% HBA1C, AND IN SELECTIVE PATIENTS <6.0%. PLEASE REFER TO [employer] DIABETIC CARE GUIDELINES FOR FURTHER INFORMATION. 21 A metabolite of Naproxen, O-desmethylnaproxen, has been shown to interfere with the Jendrassik-Riegelwood method for measuring total bilirubin. Samples from patients who have taken Naproxen have shown spurious elevation in total bilirubin levels. 22 UNABLE TO CALCULATE IND.BILI D.BILI IS <0.1 Please note updated reference range, effective 02/23/10 23 CHOLESTEROL INTERPRETATION: Desirable: Less than 200 MG/DL Borderline-High Risk: 200-239 MG/DL High-Risk: 240 MG/DL and over 24 HDL INTERPRETATION: Undesirable: High Risk: Less than 40 MG/DL Desirable: Low Risk: Greater than 60 MG/DL 25 LDL INTERPRETATION: Low Risk Optimal Level: LDL Less than 100 MG/DL Near or Above Optimal: LDL 100-129 MG/DL Borderline High Risk: LDL 130-159 MG/DL High Risk: LDL 160-189 MG/DL Very High Risk: LDL Greater than 189 MG/DL 26 Anion gap measurement may be of limited value in the presence of any alkalosis, especially in a combined acid base disorder. . 27 Because ethnic data is not always readily [...] 15-29 5 Kidney failure <15 (or dialysis) 28 03/06 29 PREADMISSION TESTING SAMPLES FOR BLOOD BANK WILL [...] WITHIN 3 DAYS OF THE SURGERY DATE. 30 Anion gap measurement may be of limited value in the presence of any alkalosis, especially in a combined acid base disorder. . 31 Because ethnic data is not always readily [...] (or dialysis) Procedures Date Code Description Status 07/03/2018 766569992 Bone Mineral Density Test Completed 04/18/2018 11574 Treadmill Interp/Report Only Completed 04/18/2018 79515 Stress Test Supervsn W/Out I/R Completed 03/14/2018 46912 ECHO Transthoracic, Real-Time 2D With Doppler And Completed Color Flow 03/14/2018 22972 ECHO Transthoracic, Real-Time 2D With Doppler And Completed Color Flow 03/04/2018 83682 EKG Tracing & Interpretation Completed 03/06/2011 78382 Stereotactic CAD Proc Cranial,Intradural Add On Code Completed 03/06/2011 17288 Craniectomy, Trephination,Bone Flap For Exc Completed Meningioma, Supratent 10/27/2007 38305 EKG, Interpretation Only Completed Encounters Type Date Location Provider Dx Diagnosis Office Visit 10/21/2018 [facility] Apollo Zamora MD E11.65 Type 2 diabetes 9:00a [facility] mellitus with hyperglycemia 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 MD syndrome, unspecified Office Visit 07/23/2018 8:40a [facility] Apollo Zamora, E24.9 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 Tract Infection Hospitalists Site Not Spec 038.9 Septicemia Unspec 250.00 Diabetes Mellitus W/O Compl Type II Or Unspec Controlled 790.29 Other Abnormal Glucose Office Visit 06/22/2014 2:58p [facility] Jovana 599.0 UTI Urinary Assoc,juancho Arauz M.D. Tract Infection Hospitalists Site Not Spec 038.9 Septicemia Unspec 250.00 Diabetes Mellitus W/O Compl Type II Or Unspec Controlled Office Visit 06/21/2014 2:58p [facility] Mya SVidya 599.0 UTI Urinary Assoc,pc Brenden N.P. Tract Infection Hospitalists Site Not Spec 038.9 Septicemia Unspec 790.29 Other Abnormal Glucose Office Visit 02/16/2011 3:00p Neurosurgery Kal Coy.2 [facility] Raya Batista Cerebral Meninges Plan of Treatment Future Appointment(s):04/22/2019 8:40 am - Apollo Zamora MD at [facility]01/21/2019 - Apollo Zamora MDE11.65 Type 2 diabetes mellitus with hyperglycemiaNew Medication:Ozempic 0.25 or 0.5 mg/Dose - inject 0.25mg weekly for 2 weeks, then increase to 0.5mg weeklyOzempic 1 mg/Dose - 1mg injection once weekly, hold on file for second monthInstructions:1. Start Ozempic once weekly injection, as follows: - 0.25mg for 2 weeks - 0.5mg for 2 weeks - 1mg after that 2. Visit [email or web address] to obtain a savings card for Ozempic. 3. Continue metformin, Toujeo and Steglatro. 4. Blood and urine tests today. 5. We will consider losartan 50mg for blood pressure if urine protein level is high. 6. Return in 3 months for a follow-up visit.E24.8 Other Organ's [id number] Hypokalemia
[2019-02-07 16:07] VITALS: BP 149/70
[2019-02-07] MEDS ORDERED: Lidocaine 1% MPF ** 5 ML VIAL INJ ONE (16:25)
--- NOTE | 2019-02-07 17:06 | UC ---
Skin Complaint HPI - HPI Summary HPI Summary: 63-year-old female comes in with a chief complaint of an injury to her face. His prior to arrival at home she walked into a ceiling fan struck her on the bridge of the nose slightly left of center on the lower forehead. No change in vision no difficulty with speech no weakness no numbness. Of nausea vomiting. She does have a headache. She has a laceration that bled freely. She stopped bleeding with direct pressure. She is not on blood thinners. - History of Current Complaint Chief Complaint: UCLaceration Time Seen by Provider: 02/07/19 16:21 Stated Complaint: FACIAL LAC Pain Intensity: 5 - Allergy/Home Medications Allergies/Adverse Reactions: Allergies Allergy/AdvReac Type Severity Reaction Status Date / Time lisinopril Allergy Coughing Verified 02/07/19 16:03 PMH/Surg Hx/FS Hx/Imm Hx Previously Healthy: Yes Endocrine History: Diabetes, Dyslipidemia - Surgical History Surgical History: Yes Surgery Procedure, Year, and Place: benign brain tumor removal,nose surgery, mass removed sinus cavity 1983,lt knee surgery 1984,rt foot bunionectomy,c- section,hysterectomy,tonsilectomy,ganglion removed from rt ring finger - Family History Known Family History: Positive: Cardiac Disease, Hypertension, Diabetes Family History: stroke - Social History Alcohol Use: None Substance Use Type: None Smoking Status (MU): Light Every Day Tobacco Smoker Type: Cigarettes Length of Time of Smoking/Using Tobacco: 30 years Have You Smoked in the Last Year: Yes When Did the Patient Quit Smoking/Using Tobacco: 3 days ago Household Exposure Type: Cigarettes - Immunization History Most Recent Influenza Vaccination: never Most Recent Tetanus Shot: within 10 years Most Recent Pneumonia Vaccination: 2008 Review of Systems All Other Systems Reviewed And Are Negative: Yes Constitutional: Positive: Negative Skin: Positive: Other - SEE HPI Eyes: Positive: Negative ENT: Positive: Negative Respiratory: Positive: Negative Cardiovascular: Positive: Negative Gastrointestinal: Positive: Negative Motor: Positive: Negative Neurovascular: Positive: Negative Musculoskeletal: Positive: Negative Neurological: Positive: Headache Psychological: Positive: Negative Is Patient Immunocompromised?: No Physical Exam Triage Information Reviewed: Yes Appearance: Well-Appearing, No Pain Distress, Well-Nourished Vital Signs: Initial Vital Signs Temp 96.3 F 02/07/19 16:03 Pulse 90 02/07/19 16:03 Resp 19 02/07/19 16:03 BP 149/70 02/07/19 16:03 Pulse Ox 97 02/07/19 16:03 Vital Signs Reviewed: Yes Eye Exam: Normal Eyes: Positive: Conjunctiva Clear, Other: - Parallel EOMI. ENT: Positive: Other - There is some swelling in the lower forehead midline just above the bridge of the nose where there is a laceration.. Negative: Nasal congestion Neck: Positive: Supple Respiratory: Positive: No respiratory distress Musculoskeletal Exam: Normal Musculoskeletal: Positive: Strength Intact, ROM Intact Neurological Exam: Normal Neurological: Positive: Alert, Muscle Tone Normal Psychological Exam: Normal Psychological: Positive: Age Appropriate Behavior Skin: Positive: Other - 2 cm linear laceration middle of the forehead just left of center just above the bridge of the nose. No active bleeding at this time. Laceration Repair - Laceration Repair 1 Description: Linear Laceration Size After Repair: Length (cm) - 2CM, Depth (mm) - SC Modified For Repair: No Type Injection: Local Anesthesia Used: 1.0% Lido Irrigation With Pressure Irrigation Device: Yes Closure Material: Sutures - #4 Closure Method: Single Layer Suture Of: Skin Suture Type: Prolene - 6-0 Course/Dx - Diagnoses Provider Diagnosis: Facial laceration, Head injury Discharge - Sign-Out/Discharge Documenting (check all that apply): Patient Departure All imaging exams completed and their final reports reviewed: No Studies - Discharge Plan Condition: Stable Disposition: HOME Patient Education Materials: Care For Your Stitches (ED), Head Injury (ED), Facial Laceration (ED) Referrals: Dennis Perez MD [Primary Care Provider] - Additional Instructions: SUTURES OUT IN 5 DAYS. FOLLOW UP WITH YOUR DOCTOR IF NOT COMPLETELY IMPROVED. GET RECHECKED SOONER IF YOUR CONDITION WORSENS; WEAKNESS, NUMBNESS, DIFFICULTY WITH VISION OR SPEECH, UNEXPLAINED VOMITING, INFECTION OR ANY QUESTIONS OR CONCERNS. - Billing Disposition and Condition Condition: STABLE Disposition: Home
== END 2019-02-07 17:15 | disposition home or self-care (01) ==
LOC: UCEAST 15:58
DX: S01.21XA Laceration without foreign body of nose, initial encounter (principal); S09.90XA Unspecified injury of head, initial encounter; W20.8XXA Other cause of strike by thrown, projected or falling object, initial encounter; Y92.019 Unspecified place in single-family (private) house as the place of occurrence of the external cause
CPT/HCPCS: 99212; G0463

== ENCOUNTER 2019-02-12 15:54 | Emergency (ER) | payer OTHER ==
[2019-02-12 16:22] VITALS: BP 150/90
--- NOTE | 2019-02-12 16:53 | UC ---
Skin Complaint HPI - HPI Summary HPI Summary: 63 year old female with facial laceration to bridge of nose 5 days ago after walking into ceiling fan. no drainage, redness. no pain - History of Current Complaint Chief Complaint: UCSkin Time Seen by Provider: 02/12/19 16:42 Stated Complaint: SUTURE REMOVAL Hx Obtained From: Patient Hx Last Menstrual Period: post ?: No Onset/Duration: Sudden Onset Current Severity: None Pain Intensity: 0 Pain Scale Used: 0-10 Numeric Location: Discrete - bridge of nose Aggravating Factor(s): Nothing Alleviating Factor(s): Nothing Associated Signs & Symptoms: Positive: Negative - Allergy/Home Medications Allergies/Adverse Reactions: Allergies Allergy/AdvReac Type Severity Reaction Status Date / Time lisinopril Allergy Coughing Verified 02/07/19 16:03 PMH/Surg Hx/FS Hx/Imm Hx Previously Healthy: Yes - Surgical History Surgical History: Yes Surgery Procedure, Year, and Place: benign brain tumor removal,nose surgery, mass removed sinus cavity 1983,lt knee surgery 1984,rt foot bunionectomy,c- section,hysterectomy,tonsilectomy,ganglion removed from rt ring finger - Family History Known Family History: Positive: Cardiac Disease, Hypertension, Diabetes, Non- Contributory Family History: stroke - Social History Alcohol Use: None Substance Use Type: None Smoking Status (MU): Light Every Day Tobacco Smoker Type: Cigarettes Length of Time of Smoking/Using Tobacco: 30 years Have You Smoked in the Last Year: Yes When Did the Patient Quit Smoking/Using Tobacco: 3 days ago Household Exposure Type: Cigarettes - Immunization History Most Recent Influenza Vaccination: never Most Recent Tetanus Shot: within 10 years Most Recent Pneumonia Vaccination: 2008 Review of Systems All Other Systems Reviewed And Are Negative: Yes Constitutional: Positive: Negative Skin: Positive: Other - laceration well healed Is Patient Immunocompromised?: No Physical Exam Triage Information Reviewed: Yes Appearance: Well-Appearing, No Pain Distress, Well-Nourished Vital Signs: Initial Vital Signs Temp 97 F 02/12/19 16:18 Pulse 102 02/12/19 16:18 Resp 16 02/12/19 16:18 BP 150/90 02/12/19 16:18 Pulse Ox 98 02/12/19 16:18 Vital Signs Reviewed: Yes Eyes: Positive: Conjunctiva Clear ENT: Positive: Sinus tenderness Neck: Positive: Supple. Negative: Nuchal Rigidity Musculoskeletal Exam: Normal Neurological Exam: Normal Psychological Exam: Normal Skin: Positive: Other - laceration over nose well healed, no drainage, cleared, sutures removed without difficulty, 4 Course/Dx - Course Course Of Treatment: laceration repair, sutures removed. - Diagnoses Provider Diagnosis: Visit for suture removal Discharge - Sign-Out/Discharge Documenting (check all that apply): Patient Departure All imaging exams completed and their final reports reviewed: No Studies - Discharge Plan Condition: Good Disposition: HOME Patient Education Materials: Stitches Removal (ED) Referrals: Dennis Perez MD [Primary Care Provider] - Additional Instructions: - Steri-strips placed- will fall off on own in 2-3 days, remove after 3 days if not - OK to shower, no bathing/ soaking x 2 days - Return with redness, drainage, pain - Billing Disposition and Condition Condition: GOOD Disposition: Home
== END 2019-02-12 16:54 | disposition home or self-care (01) ==
LOC: UCEAST 15:54
DX: Z48.02 Encounter for removal of sutures (principal); F17.210 Nicotine dependence, cigarettes, uncomplicated

== ENCOUNTER 2021-02-16 05:58 | Inpatient (IN) ==
[2021-02-16] MEDS ORDERED: Buffered Lidocaine 1% SYRIN 1 ml INTRADERM ONE ×2 (06:00→06:43)
[2021-02-16] MEDS ORDERED: Lactated Ringers 1000 ml BAG 1,000 ML IV SCH (06:00)
[2021-02-16 06:32] LABS: ABS Basophils 0.1 10^3/ul (0-0.2); ABS Eosinophils 0.1 10^3/ul (0-0.6); ABS Lymphocytes 2.8 10^3/ul (1.0-4.8); ABS Monocytes 0.5 10^3/ul (0-0.8); ABS Neutrophils 5.4 10^3/ul (1.5-7.7); Eosinophil % 1.3 %; Hematocrit 45 % (35-47); Hemoglobin 15.5 g/dL (12.0-16.0); Lymphocyte % 31.5 %; Mean Corpuscular HGB Conc 34 g/dL (31-36); Mean Corpuscular Hemoglobin 30 pg (27-31); Mean Corpuscular Volume 88 fL (80-97); Mean Platelet Volume 8.5 fL (7.4-10.4); Platelet Count 217 10^3/uL (150-450); Red Blood Count 5.13 10^6 /uL (3.70-4.87); Red Cell Distribution Width 14 % (10-15); White Blood Count 8.9 10^3/uL (3.5-10.8)
[2021-02-16] MEDS ORDERED: Phenylephrine IV 10 MG/ML 1 ml VIAL ONE (06:56)
[2021-02-16] MEDS ORDERED: Lidocaine 2% PF 5 ML VIAL ONE ×2 (07:00→12:57)
[2021-02-16] MEDS ORDERED: fentaNYL 250 mcg/5 ml 50 MCG/ML 5 ml VIAL (250 MCG) ONE (07:00)
[2021-02-16] MEDS ORDERED: Propofol 10 mg/ml 100 ML BTL 100 ML ONE (07:02)
[2021-02-16] MEDS ORDERED: Propofol 10 mg/ml 100 ML BTL 200 ML ONE (07:03)
[2021-02-16] MEDS ORDERED: Rocuronium 50 mg VIAL 10 mg/ml 5 ml VIAL (50 mg) ONE (07:07)
[2021-02-16] MEDS ORDERED: Remifentanil 2 MG VIAL ONE ×3 (07:07→12:21)
[2021-02-16] MEDS ORDERED: Lidocaine 1% w EPI 1:100,000 MDV 20 ML VIAL ONE (07:09)
[2021-02-16] MEDS ORDERED: Thrombin 5,000 UNITS 1 APPLIC KIT - topical use - TOPICAL ONE (07:09)
[2021-02-16] MEDS ORDERED: Bacitracin OINTMENT TUBE ONE (07:10)
[2021-02-16] MEDS ORDERED: Bacitracin INJECTION (manuf dc) 50,000 UNITS ONE (07:10)
[2021-02-16] MEDS ORDERED: Propofol 10 MG/ML 20 ML BTL ONE ×2 (07:13→08:56)
[2021-02-16] MEDS ORDERED: Gelfoam Sponge SIZE 100 SPONGE ONE (07:38)
[2021-02-16] MEDS ORDERED: levETIRAcetam 1000MG IVPREMIX 1,000 MG/100 ML BAG IVPB ONE (07:55)
[2021-02-16] MEDS ORDERED: Mannitol 25% (12.5 GM) 50 ML 12.5 GM/50 ML VIAL IV ONE ×2 (08:00)
[2021-02-16] MEDS ORDERED: Albumin Human 5% 25 GM/500 ML BTL IV ONE (08:00)
[2021-02-16] MEDS ORDERED: Dexamethasone IV 4 MG/ML VIAL 1 ml VIAL ONE ×2 (08:35→11:10)
[2021-02-16] MEDS ORDERED: Phenylephrine 40 mcg/mL 10mL (400mcg) SYRINGE ONE (08:38)
[2021-02-16] MEDS ORDERED: Artificial Tear OPHTH.OINT 3.5 GM ONE (09:56)
[2021-02-16 09:58] LABS: PCO2 Arterial 40 mmHg (35-45); PO2 Arterial 133 mmHg (80-100)
[2021-02-16 10:13] LABS: Calcium 8.7 mg/dL (8.6-10.3); EGFR African American 86.4 (>60); EGFR Non-African American 71.4 (>60); Potassium 3.6 mmol/L (3.5-5.0)
[2021-02-16] MEDS ORDERED: Furosemide 20 mg/2 ml IV VIAL ONE (10:19)
[2021-02-16] MEDS ORDERED: Glycopyrrolate IV 0.2 MG/ML 1 ML VIAL ONE (10:32)
[2021-02-16] MEDS ORDERED: Ondansetron 4 mg VIAL 2 MG/ML 2 ml VIAL ONE (11:10)
[2021-02-16] MEDS ORDERED: Acetaminophen IV 1 GM/100ML 100 ML IV ONE (11:10)
[2021-02-16] MEDS ORDERED: Naloxone 0.4 mg VIAL 0.4 mg/ml 1 ml VIAL IV PRN (12:43)
[2021-02-16] MEDS ORDERED: DiMENhydriNATE IV 50 mg/ml 1 ml VIAL IV PUSH PRN (12:43)
[2021-02-16] MEDS ORDERED: diPHENhydraMINE IV 50 MG/ML 1 ml VIAL (BENADRYL) IV PRN (12:43)
[2021-02-16] MEDS ORDERED: fentaNYL 100 mcg/2 ml 50 MCG/ML VIAL IV PRN (12:43)
[2021-02-16] MEDS ORDERED: Levalbuterol HFA INHALER MDI ONE (13:20)
[2021-02-16] MEDS ORDERED: fentaNYL 100 mcg/2 ml 50 MCG/ML VIAL ONE (13:24)
[2021-02-16] MEDS ORDERED: Esmolol 10 MG/ML 10 ML (100 mg) ONE (13:27)
[2021-02-16] MEDS ORDERED: HYDROcodone/ACETAMIN 5/325 mg TAB PO PRN (14:19)
[2021-02-16] MEDS ORDERED: Magnesium Hydroxide LIQ 30 ML UDC PO PRN (14:19)
[2021-02-16 14:31] LABS: PCO2 Arterial 39 mmHg (35-45); PO2 Arterial 143 mmHg (80-100)
[2021-02-16 14:33] LABS: ABS Lymphocytes 0.7 10^3/ul (1.0-4.8); ABS Monocytes 0.1 10^3/ul (0-0.8); ABS Neutrophils 6.3 10^3/ul (1.5-7.7); Hematocrit 43 % (35-47); Hemoglobin 14.3 g/dL (12.0-16.0); Lymphocyte % 9.8 %; Mean Corpuscular HGB Conc 34 g/dL (31-36); Mean Corpuscular Hemoglobin 30 pg (27-31); Mean Corpuscular Volume 89 fL (80-97); Mean Platelet Volume 8.5 fL (7.4-10.4); Platelet Count 169 10^3/uL (150-450); Red Blood Count 4.76 10^6 /uL (3.70-4.87); Red Cell Distribution Width 14 % (10-15); White Blood Count 7.1 10^3/uL (3.5-10.8)
[2021-02-16 14:49] LABS: Calcium 8.8 mg/dL (8.6-10.3); EGFR African American 80.6 (>60); EGFR Non-African American 66.6 (>60)
[2021-02-16] MEDS ORDERED: DiMENhydriNATE IV 50 mg/ml 1 ml VIAL ONE (15:06)
[2021-02-16] MEDS ORDERED: Ondansetron 4 mg VIAL 2 MG/ML 2 ml VIAL IV PRN (16:06)
[2021-02-16] MEDS: levETIRAcetam 500 MG IVPREMIX 500 MG/100 ML BAG IV SCH (16:33)
[2021-02-16] MEDS: Lactated Ringers 1000 ml BAG 1,000 ML IV SCH (16:34)
[2021-02-16] MEDS ORDERED: niCARdipine 0.1MG/ML IVPREMIX 20 MG/200 ML BAG IV SCH (17:00)
[2021-02-16] MEDS: hydrALAZINE 20 mg/ml 1 ML Vial IV IV SLOW PU PRN (17:53)
[2021-02-16] MEDS: ceFAZolin 1 GM ADVAN 1 GM in NS 0.9% 50 ML 50 ML IVPB SCH (18:39)
[2021-02-16] MEDS: Dexamethasone IV 4 MG/ML VIAL 1 ml VIAL IV SLOW PU SCH (18:41)
[2021-02-16] MEDS: Insulin GLARGINE 100 un/ml 10 ml VIAL SUBCUT SCH (21:11)
[2021-02-17] MEDS: Morphine 2 MG/ML SYRINGE IV PRN (00:31)
[2021-02-17] MEDS: Dexamethasone IV 4 MG/ML VIAL 1 ml VIAL IV SLOW PU SCH ×3 (02:16→17:02)
[2021-02-17] MEDS: ceFAZolin 1 GM ADVAN 1 GM in NS 0.9% 50 ML 50 ML IVPB SCH ×2 (02:16→11:29)
[2021-02-17] MEDS: levETIRAcetam 500 MG IVPREMIX 500 MG/100 ML BAG IV SCH ×2 (02:56→15:30)
[2021-02-17 05:45] LABS: ABS Lymphocytes 0.6 10^3/ul (1.0-4.8); ABS Monocytes 0.3 10^3/ul (0-0.8); ABS Neutrophils 10.6 10^3/ul (1.5-7.7); Hematocrit 41 % (35-47); Hemoglobin 13.7 g/dL (12.0-16.0); Lymphocyte % 5.4 %; Mean Corpuscular HGB Conc 34 g/dL (31-36); Mean Corpuscular Hemoglobin 30 pg (27-31); Mean Corpuscular Volume 89 fL (80-97); Mean Platelet Volume 8.7 fL (7.4-10.4); Platelet Count 181 10^3/uL (150-450); Red Blood Count 4.59 10^6 /uL (3.70-4.87); Red Cell Distribution Width 14 % (10-15); White Blood Count 11.5 10^3/uL (3.5-10.8)
[2021-02-17 05:49] LABS: Calcium 8.8 mg/dL (8.6-10.3); EGFR Non-African American 85.9 (>60); Phosphorus 3.1 mg/dL (2.5-5.0); Potassium 3.5 mmol/L (3.5-5.0)
[2021-02-17] MEDS: Lactated Ringers 1000 ml BAG 1,000 ML IV SCH (08:20)
[2021-02-17] MEDS: KCL 20 MEQ/100 ML IVPREMIX 20 MEQ/100 ML BAG IV SCH ×2 (08:30→13:01)
[2021-02-17] MEDS ORDERED: Gadoteridol (CONTRAST) 279.3 MG/ML 10 ML IV SCH (10:08)
[2021-02-17] MEDS: Pantoprazole VIAL 40 MG VIAL IV SCH (11:28)
[2021-02-17] MEDS: CMC:Lovastatin 10 mg TAB (NF) PO SCH (18:41)
[2021-02-17] MEDS ORDERED: Dextrose 50% Syringe 50 ml 25 GM/50 ML SYRINGE IV PUSH PRN (20:46)
[2021-02-17] MEDS: Insulin GLARGINE 100 un/ml 10 ml VIAL SUBCUT SCH (20:58)
[2021-02-18] MEDS: Dexamethasone IV 4 MG/ML VIAL 1 ml VIAL IV SLOW PU SCH ×3 (00:08→23:07)
[2021-02-18] MEDS: levETIRAcetam 500 MG IVPREMIX 500 MG/100 ML BAG IV SCH ×2 (03:10→15:13)
[2021-02-18] MEDS: Pantoprazole VIAL 40 MG VIAL IV SCH (08:51)
[2021-02-18] MEDS: Empaglifozin 10 mg TAB (NF) PO SCH (08:52)
[2021-02-18 09:28] LABS: ABS Lymphocytes 1.3 10^3/ul (1.0-4.8); ABS Monocytes 0.5 10^3/ul (0-0.8); Hematocrit 40 % (35-47); Hemoglobin 13.5 g/dL (12.0-16.0); Mean Corpuscular HGB Conc 34 g/dL (31-36); Mean Corpuscular Hemoglobin 30 pg (27-31); Mean Corpuscular Volume 89 fL (80-97); Mean Platelet Volume 8.6 fL (7.4-10.4); Platelet Count 196 10^3/uL (150-450); Red Blood Count 4.47 10^6 /uL (3.70-4.87); Red Cell Distribution Width 14 % (10-15); White Blood Count 12.8 10^3/uL (3.5-10.8)
[2021-02-18 09:45] LABS: Calcium 8.7 mg/dL (8.6-10.3); EGFR Non-African American 85.9 (>60)
[2021-02-18] MEDS ORDERED: Furosemide 40 mg/4 ml IV VIAL IV SLOW PU ONE (10:13)
[2021-02-18] MEDS: FLUID IV SCH (12:39)
[2021-02-18] MEDS: CEFTRIAXONE ADVAN IV SCH (12:39)
[2021-02-18] MEDS: NS IV SCH (12:39)
[2021-02-18] MEDS: CMC:Lovastatin 10 mg TAB (NF) PO SCH (17:25)
[2021-02-18] MEDS ORDERED: Insulin GLARGINE 100 un/ml 10 ml VIAL SUBCUT SCH (21:00)
[2021-02-18] MEDS: Morphine 2 MG/ML SYRINGE IV PRN (23:07)
[2021-02-19] MEDS: levETIRAcetam 500 MG IVPREMIX 500 MG/100 ML BAG IV SCH (03:49)
[2021-02-19] MEDS: CEFTRIAXONE ADVAN IV SCH (08:29)
[2021-02-19] MEDS: NS IV SCH (08:29)
[2021-02-19] MEDS: Pantoprazole VIAL 40 MG VIAL IV SCH (08:29)
[2021-02-19] MEDS: FLUID IV SCH (08:29)
[2021-02-19] MEDS: Empaglifozin 10 mg TAB (NF) PO SCH (08:37)
[2021-02-19 09:16] LABS: Hematocrit 42 % (35-47)
[2021-02-19] MEDS: Dexamethasone IV 4 MG/ML VIAL 1 ml VIAL IV SLOW PU SCH (11:20)
[2021-02-19] MEDS: CMC:Lovastatin 10 mg TAB (NF) PO SCH (17:48)
[2021-02-19] MEDS: HYDROcodone/ACETAMIN 5/325 mg TAB PO PRN (20:50)
[2021-02-19] MEDS ORDERED: Insulin GLARGINE 100 un/ml 10 ml VIAL SUBCUT SCH (21:00)
[2021-02-20] MEDS: HYDROcodone/ACETAMIN 5/325 mg TAB PO PRN ×2 (02:08→10:32)
[2021-02-20] MEDS: hydrALAZINE 20 mg/ml 1 ML Vial IV IV SLOW PU PRN (08:05)
[2021-02-20] MEDS: Empaglifozin 10 mg TAB (NF) PO SCH (08:06)
[2021-02-20 09:05] VITALS: BP 94/58
== END 2021-02-20 10:53 | disposition home or self-care (01) | DRG 21 ==
LOC: AA 05:58 → ICU 14:19 → SSU 02-19 11:00
PROVIDERS: ADMIT Neurological Surgery; ATTEND Neurological Surgery